=== PATIENT | male | born 1955 ===

== ENCOUNTER → 2018-06-08 | Outpatient (CLI) | payer OTHER ==
[~2018-06-08] MED LIST: ASPI325EC PO; IBUP800 PO; OXYC5 PO
[2018-06-08 14:00] LABS: BASOPHILS ABSOLUTE AUTO 0.05 K/mm3 (0.00-0.23); BASOPHILS PERCENT AUTO 1 % (0-2); EOSINOPHILS ABSOLUTE AUTO 0.16 K/mm3 (0.00-0.68); EOSINOPHILS PERCENT AUTO 2 % (0-6); Hematocrit 42.9 % (37.0-53.0); Hemoglobin 15.3 g/dL (13.5-17.5); IMMATURE GRAN ABSOLUTE AUTO 0.03 K/mm3 (0.00-0.10); IMMATURE GRAN PERCENT AUTO 0 % (0-1); LYMPHOCYTES ABSOLUTE AUTO 1.95 K/mm3 (0.84-5.20); LYMPHOCYTES PERCENT AUTO 21 % (21-46); MONOCYTES ABSOLUTE AUTO 1.03 K/mm3 (0.16-1.47); MONOCYTES PERCENT AUTO 11 % (4-13); Mean Corpuscular HGB 29.9 pg (26.0-34.0); Mean Corpuscular HGB Conc 35.7 g/dL (31.5-36.5); Mean Corpuscular Volume 84 fL (80-100); Mean Platelet Volume 9.5 fL (9.1-12.4); NEUTROPHILS ABSOLUTE AUTO 6.27 K/mm3 (1.96-9.15); NEUTROPHILS PERCENT AUTO 66 % (41-73); Platelet Count 239 K/mm3 (150-400); RDW Coefficient Variation 12.9 % (11.7-14.2); RDW Standard Deviation 39.3 fL (35.1-46.3); Red Blood Cell Count 5.12 M/mm3 (4.30-5.90); White Blood Cell Count 9.49 K/mm3 (4.00-11.30)
== END | disposition home or self-care (01) ==
LOC: LAB EV 13:55 → LAB SHORT 13:55
PROVIDERS: Physician Assistant Surgical
DX: M79.671 Pain in right foot (principal); R22.41 Localized swelling, mass and lump, right lower limb
CPT/HCPCS: 84550; 85025

== ENCOUNTER 2018-10-10 12:46 | Day surgery (SDC) | payer OTHER ==
[~2018-10-10] VITALS: Ht 177.8 cm; Wt 108.9 kg
[~2018-10-10 12:46] MED LIST changes: +Mobic15 MG PO
--- NOTE | 2018-10-10 13:55 | NUR ---
10/10/18 1355 Annette Carranza DISCHARGE TEACHING COMPLETED AND ALL QUESTIONS ANSWERED. PT RESTING COMFORTABLY IN BED WITH CALL LIGHT ATTACHED TO RAIL. PT NOTIFIED OF OR DELAY.
--- NOTE | 2018-10-10 16:50 | NUR ---
10/10/18 1650 Lesvia Montano PT. VERBALIZES ABLE TO FEEL TOUCH TO LEFT TOES. WHEN ASKED IF TOES FEEL NUMB, PT. NODDED HIS HEAD NO. PT. SHIVERING & GIVEN A WARM BLANKET WHICH STOP THE SHIVERING.
--- NOTE | 2018-10-10 17:15 | NUR ---
10/10/185 Lesvia Montano WHEN PT. ASKED IF HE HAD ANY PAIN PT. STATED "NO BUT I CAN FEEL THAT ANKLE." PT. WITH GOOD CAP REFILL TO LEFT TOES. PT. GIVEN HIS HARDWARE POST SURGERY.
== END 2018-10-10 17:52 | disposition home or self-care (01) ==
LOC: ORSCSDS 12:46
PROVIDERS: Podiatrist Foot & Ankle Surgery
PROC: 0SPG04Z Removal of Internal Fixation Device from Left Ankle Joint, Open Approach (ICD-10-PCS; principal; 2018-10-10 14:15)
DX: T84.84XA Pain due to internal orthopedic prosthetic devices, implants and grafts, initial encounter (principal)
CPT/HCPCS: J1100; J1885; J2405; J3010

== ENCOUNTER → 2021-10-05 | Outpatient (CLI) | payer OTHER ==
[2021-10-05 15:32] LABS: BASOPHILS ABSOLUTE AUTO 0.05 K/mm3 (0.00-0.23); BASOPHILS PERCENT AUTO 1 % (0-2); EOSINOPHILS ABSOLUTE AUTO 0.02 K/mm3 (0.00-0.68); EOSINOPHILS PERCENT AUTO 0 % (0-6); Hematocrit 40.9 % (37.0-53.0); Hemoglobin 13.6 g/dL (13.5-17.5); IMMATURE GRAN ABSOLUTE AUTO 0.05 K/mm3 (0.00-0.10); IMMATURE GRAN PERCENT AUTO 1 % (0-1); LYMPHOCYTES ABSOLUTE AUTO 1.48 K/mm3 (0.84-5.20); LYMPHOCYTES PERCENT AUTO 14 % (21-46); MONOCYTES ABSOLUTE AUTO 1.41 K/mm3 (0.16-1.47); MONOCYTES PERCENT AUTO 13 % (4-13); Mean Corpuscular HGB 29.5 pg (26.0-34.0); Mean Corpuscular HGB Conc 33.3 g/dL (31.5-36.5); Mean Corpuscular Volume 89 fL (80-100); Mean Platelet Volume 9.2 fL (9.1-12.4); NEUTROPHILS ABSOLUTE AUTO 7.88 K/mm3 (1.96-9.15); NEUTROPHILS PERCENT AUTO 72 % (41-73); Platelet Count 277 K/mm3 (150-400); RDW Coefficient Variation 12.9 % (11.7-14.2); Red Blood Cell Count 4.61 M/mm3 (4.30-5.90); White Blood Cell Count 10.89 K/mm3 (4.00-11.30)
== END ==
LOC: LAB SHORT 15:28 → LAB 15:28
PROVIDERS: Physician Assistant Surgical
DX: M79.675 Pain in left toe(s) (principal)
CPT/HCPCS: 84550; 85025

== ENCOUNTER → 2023-05-07 | Outpatient (CLI) | payer OTHER ==
[2023-05-08 13:04] LABS: Stool Occult Bld Immuno 1 Negative (NEGATIVE)
== END | disposition home or self-care (01) ==
LOC: LAB SHORT 11:30 → LAB 11:30
PROVIDERS: Physician Assistant
DX: Z12.11 Encounter for screening for malignant neoplasm of colon (principal); Z12.12 Encounter for screening for malignant neoplasm of rectum
CPT/HCPCS: G0328